=== PATIENT | male | born 1950 | race Caucasian/White ===

== ENCOUNTER 2016-07-03 11:38 | Day surgery (SDC) | payer BC ==
[2016-06-30 12:04] LABS: Urine RBC None Seen /hpf (0 - 3)
[2016-06-30 12:38] LABS: Basophils # (auto) 0.1 uL; Basophils % (auto) 0.9 % (0.0-2.0); Eosinophils # (auto) 0.2 uL; Eosinophils % (auto) 2.4 % (0.0-7.0); Hematocrit 43.2 % (41.0-53.0); Hemoglobin 14.6 g/dL (13.5-17.5); Lymphocytes # (auto) 2.4 uL; Lymphocytes % (auto) 34.2 % (10.0-50.0); Mean Corpuscular Hemoglobin 31.2 pg (28.0-32.0); Mean Corpuscular Hgb Conc. 33.8 g/dL (32.0-36.0); Mean Corpuscular Volume 92.4 fL (80.0-100.0); Monocytes # (auto) 0.7 uL; Monocytes % (auto) 9.5 % (0.0-12.0); Neutrophils # (auto) 3.7 uL; Platelet Count (auto) 270 10^3/uL (140-450); Red Cell Distribution Width 13.3 % (11.6-16.0); White Blood Cell 6.9 10^3/uL (4.4-10.8)
[2016-06-30 12:51] LABS: INR 0.96 (0.9-1.15); Partial Thromboplastin Time 27.5 sec (22.64-33.71); Prothrombin Time 10.4 sec (9.37-12.3)
[2016-06-30 12:54] LABS: Urine Bilirubin Negative (Negative); Urine Blood Negative /uL (Negative); Urine Color Yellow (Yellow); Urine Ketone Negative (Negative); Urine Nitrite Negative (Negative); Urine Urobilinogen Normal (Negative); Urine pH 5.5 (5.0-8.0)
[2016-06-30 12:55] LABS: Urine Glucose 3+ mg/dL (Normal)
[2016-06-30 14:16] LABS: BUN/Creatinine Ratio 13.4; Potassium 4.7 mmol/L (3.5-5.1)
[~2016-07-03] VITALS: Ht 188 cm; Wt 151.5 kg
[~2016-07-03 11:38] MED LIST: FIBECAP OR; GLIP-115 PO; LACO150T PO; LOSA50TA6 PO; METF1000 PO; MULT-228 PO; SIMV-8 PO
[2016-07-03] MEDS ORDERED: ceFAZolin 1GM/50ML D5W 50 ML IV ONE (12:59)
[2016-07-03] MEDS ORDERED: DEXAMETHASONE SOD PHOS 10MG/1ML VIAL INJ ONE (16:30)
[2016-07-03] MEDS ORDERED: KETOROLAC TROMETH 60MG/2ML VIAL IM ONE (16:30)
[2016-07-03] MEDS ORDERED: ONDANSETRON HCL 4 MG/2 ML VIAL ONE (16:30)
[2016-07-03] MEDS ORDERED: PROPOFOL 10 MG/ML 20 ML IV ONE (16:30)
[2016-07-03] MEDS ORDERED: fentaNYL CITRATE 100 MCG/2 ML VL ONE (16:30)
[2016-07-03] MEDS ORDERED: GLYCOPYRROLATE 0.2 MG/ML 1ML VIAL ONE (16:30)
[2016-07-03] MEDS ORDERED: ONDANSETRON HCL 4 MG/2 ML VIAL IV ONE (17:45)
[2016-07-03] MEDS ORDERED: HYDROmorphone HCL 2 MG/ML VL IV PRN (17:45)
[2016-07-03] MEDS ORDERED: LABETALOL HCL 5 MG/ML 4ML SYRINGE IV PRN (17:45)
[2016-07-03 19:00] VITALS: BP 135/72
== END 2016-07-03 19:05 | disposition home or self-care (01) ==
LOC: SUR 11:38
PROVIDERS: ATTEND Urology
DX: D49.4 Neoplasm of unspecified behavior of bladder (principal); E11.9 Type 2 diabetes mellitus without complications; R56.9 Unspecified convulsions; E78.5 Hyperlipidemia, unspecified; G40.909 Epilepsy, unspecified, not intractable, without status epilepticus; E66.01 Morbid (severe) obesity due to excess calories; Z87.891 Personal history of nicotine dependence; Z90.49 Acquired absence of other specified parts of digestive tract
CPT/HCPCS: 36415; 52240; 80048; 81001; 82962; 85025; 85610; 85730; 87086; 88307; J0690; J1100; J1885; J2405; J2704; J3010

== ENCOUNTER 2017-11-06 06:52 | Day surgery (SDC) | payer BC ==
[~2017-11-06] VITALS: Ht 188 cm; Wt 145.1 kg
[~2017-11-06 06:52] MED LIST changes: +EMPA1TAB PO; +HYDR-4683 PO; -LACO150T PO; +LOSA-46 PO; -LOSA50TA6 PO; -MULT-228 PO; +PERA1TAB PO
[2017-11-06] MEDS ORDERED: LIDOCAINE 2% (LOCAL ANESTH.) PF 5ml SDV ONE (07:23)
[2017-11-06] MEDS ORDERED: IODIXANOL 320MG/ML 100ML BTL IV ONE (07:23)
[2017-11-06] MEDS ORDERED: ANGIOMAX 250 MG VIAL IV ONE (08:16)
[2017-11-06] MEDS ORDERED: SODIUM CHL 0.9% 0 ML ONE (08:17)
[2017-11-06] MEDS ORDERED: MIDAZOLAM HCL 1MG/1ML-2 ML VIAL ONE ×2 (08:17→08:33)
[2017-11-06] MEDS ORDERED: fentaNYL CITRATE 100 MCG/2 ML VL ONE (08:17)
[2017-11-06] MEDS ORDERED: VERAPAMIL 2.5MG/ML INJ 2ML VIAL IV ONE (08:20)
[2017-11-06] MEDS ORDERED: HEPARIN SODIUM (PORCINE) 5000 UNITS/ML 1ML VIAL ONE (08:36)
== END 2017-11-06 11:05 | disposition home or self-care (01) ==
LOC: CATH 06:52
PROVIDERS: ATTEND Internal Medicine
DX: R94.39 Abnormal result of other cardiovascular function study (principal); E66.9 Obesity, unspecified; E11.9 Type 2 diabetes mellitus without complications; Z68.41 Body mass index [BMI] 40.0-44.9, adult; Z98.62 Peripheral vascular angioplasty status; Z98.61 Coronary angioplasty status; Z82.49 Family history of ischemic heart disease and other diseases of the circulatory system; Z87.891 Personal history of nicotine dependence; Z83.3 Family history of diabetes mellitus; Z79.899 Other long term (current) drug therapy; Z79.1 Long term (current) use of non-steroidal anti-inflammatories (NSAID); Z79.84 Long term (current) use of oral hypoglycemic drugs; Z80.8 Family history of malignant neoplasm of other organs or systems
CPT/HCPCS: 93454; 99152; A6257; C1769; C1894; J1644; J2001; J2250; J3010; J7030; Q9967